=== PATIENT | male | born 1975 | race Asian ===

== ENCOUNTER 2016-08-19 00:24 | Emergency (ER) | payer SELFPAY ==
[~2016-08-19] VITALS: Ht 165.1 cm; Wt 66.1 kg
[2016-08-19 00:33] VITALS: Ht 165.1 cm; Wt 66.1 kg
[2016-08-19] MEDS ORDERED: AMOX500C3 PO (00:56)
[2016-08-19] MEDS ORDERED: AMOXICILLIN 250 MG CAP PO STA (00:56)
[2016-08-19] MEDS ORDERED: CIPRO 0.2%/HYDROCORTISONE 1% OTIC SUSP 10 ML BTL OT STA (00:56)
[2016-08-19 01:29] VITALS: BP 118/74; PULSE 71; TEMP 36.8; O2SAT 94
--- NOTE | 2016-08-19 04:10 | EMERGENCY ROOM VISIT NOTE ---
History First contact with patient: 00:37 Chief Complaint: EAR PAIN Stated Complaint: EAR PAIN History of Present Illness The patient is a 40 year old male who presents to the Emergency Room with complaints of left ear pain and fullness for the past few days. Patient denies cough, chest pain, dyspnea, headache, neck status, sore throat, facial pain. He is tolerating by mouth fluids and food. He has had water in his ear recently. Review of Systems See HPI for pertinent positives & negatives. A total of 10 systems reviewed and were otherwise negative. Past Medical/Surgical History Medical Problems: (1) Asthma Family History Diabetes mellitus Hypertension Social History Smoking Status: Never Smoker Drug Use: none Marital Status: single Housing Status: lives with friends Occupation Status: employed Current/Historical Medications Scheduled Amoxicillin (Amoxil), 500 MG PO TID Allergies Coded Allergies: No Known Allergies (Unverified , 08/19/16) Physical Exam Vital Signs Date Time Temp Pulse Resp B/P (MAP) Pulse Ox O2 Delivery O2 Flow Rate FiO2 08/19/16 01:29 36.8 71 18 118/74 94 08/19/16 01:28 71 18 118/74 94 Room Air 08/19/16 00:33 36.8 75 18 115/81 94 Room Air Pain Rating (0-10): 3.0 Physical Exam VITALS: Vitals are noted on the nurse's note and reviewed by myself. Vital signs stable. GENERAL: Pleasant male, in no acute distress, nondiaphoretic, well-developed well-nourished. SKIN: The skin was without rashes, erythema, edema, or bruising. There is no tenting of the skin. Capillary reflex less than 2 seconds. HEAD: Normocephalic atraumatic. EARS: Left tympanic membrane bulging concerning for otitis media with the ear canal quite erythematous and edematous and tragus tenderness the right External auditory canals clear, tympanic membranes pearly gillis without erythema or effusion. No mastoid tenderness bilaterally EYES: Pupils equal round and reactive to light and accommodation. Conjunctivae without injection, sclerae without icterus. Extraocular movements intact. NOSE: Patent, turbinates without inflammation or discharge. No sinus tenderness. MOUTH: Mucous membranes moist. Pharynx without erythema or exudate. Uvula midline. Airway patent. Tongue does not deviate. NECK: Supple without nuchal rigidity. No lymphadenopathy. No thyromegaly. Cervical spine is nontender. No JVD. No meningeal signs HEART: Regular rate and rhythm without murmurs gallops or rubs. LUNGS: Clear to auscultation bilaterally without wheezes, rales or rhonchi. No dullness to percussion. No retractions or accessory muscle use. ABDOMEN: Positive bowel sounds x 4. Normal tympanic percussion. Soft, nontender, without masses or organomegaly. Grier sign negative. No guarding or rebound tenderness. MUSCULOSKELETAL: No muscle atrophy, erythema, or edema noted. NEURO: Patient was alert and oriented to person place and time. Normal sensation to light and sharp touch. No focal neurological deficits. Medical Decision & Procedures Medications Administered Medications (Trade) Dose Ordered Sig/Rafia Route Start Time Stop Time Status Last Admin Dose Admin Amoxicillin (Amoxil Cap) 500 mg NOW STAT PO 08/19/16 00:56 08/19/16 00:58 DC 08/19/16 01:20 500 MG Ciprofloxacin/ Hydrocortisone (Cipro Hc Otic Susp) 2 drops NOW STAT OT 08/19/16 00:56 08/19/16 00:58 DC 08/19/16 01:23 2 DROPS ED Course Prior records/ancillary studies reviewed. Triage Nursing notes reviewed. Additional history obtained from friend The patient's history was concerning for ear problems Differential diagnosis: Etiologies such as viral syndrome, otitis, pharyngitis, mastoiditis, eustachian tube dysfunction, as well as others were entertained. Physical examination: Otitis ER treatment provided: Amoxicillin, Cipro drops On reassessment the patient felt better. Diagnostics interpreted by me: Deferred This appears to be consistent with otitis. Patient was started on antibiotics. He also had tragus tenderness and the ear canal is quite edematous so Cipro drops were also added in. He is advised no swimming until symptoms have resolved and cleared by the family care doctor. He was advised follow-up in a few days or here in the ER sooner for headache, neck stiffness, severe pain, worsening signs or symptoms or as needed. Patient no signs of meningitis or mastoiditis on exam he was well-appearing.. By the evaluation outlined above emergent etiologies such as pharyngitis, pneumonia, meningitis, sepsis, bacteremia, as well as others were deemed relatively unlikely. The pt informed about the findings as listed above. All questions were answered and pleased with the treatment. Return instructions were outlined and the patient was discharged in stable condition. Outpatient prescription management: amoxil Referral: The patient was referred back to their primary care physician for follow-up in 2 to 3 days for a recheck of the current condition. Medical Decision as above Impression Primary Impression: Left otitis media Departure Information Dispostion Home / Self-Care Condition GOOD Prescriptions Amoxicillin (AMOXIL) 500 Mg Cap 500 MG PO TID for 10 Days, #30 CAP Prov: Darya Huynh PA-C 08/19/16 Forms WORK / SCHOOL INSTRUCTIONS, HOME CARE DOCUMENTATION FORM, IMPORTANT VISIT INFORMATION Patient Instructions [facility], ED Otitis Media Serous Adult Additional Instructions Cipro drops: 2 drops 4 times a day to the left ear for one week. No swimming for the next 2 weeks. It may take up to 2 weeks for your hearing to come back. Amoxicillin 500mg: Take one pill 3 times daily for 10 days for your infection. All antibiotics can cause diarrhea. If this occurs and you feel worse or it does not resolve in 1-2 days follow up with your doctor or return to the Emergency Department as this could be signs of serious underlying problems. Any medication can cause an allergic reaction, stop the pills immediately and return to the ER for rash, hives, breathing difficulties, or swelling. Acetaminophen(Tylenol) may be used for fever or pain. Use 1000mg every six hours as needed. Avoid using more than 4000mg in a 24 hour period. (AND/OR) Ibuprofen(Motrin, Advil) may be used for fever or pain. Use 600mg every six hours as needed. Take with food. Avoid using more than 2400mg in a 24 hour period. Do not use 2400mg per day for more than three consecutive days without physician direction. Prolonged inappropriate use can lead to stomach upset or ulcers. Afrin nasal spray: 2-3 sprays to each nostril twice daily as needed for congestion. Do not use for more than 3-4 days because it can lead to worsening rebound congestion. Pseudoephedrine(Sudaphed): 30-60mg every 6 hours as needed for nasal congestion. Do not take this with other stimulant products or supplements. Rest and drink plenty of fluids. Controlling your fever with Tylenol and Ibuprofen as above will make you feel better. Wash your hands after nose blowing, sneezing, or coughing. Most germs are spread through contact, therefore improper hygiene may result in your close contacts and loved ones becoming ill just like you. Continue current medications. Return to the ER for severe headache, neck stiffness, chest pain, difficulty breathing, fevers, vomiting, worsening of your condition, or as needed. Follow up with your primary physician this week for a recheck of your current condition. Problem Qualifiers Primary Impression: Left otitis media Otitis media type: suppurative Chronicity: acute Recurrence: not specified as recurrent Spontaneous tympanic membrane rupture: without spontaneous rupture Qualified Codes: H66.002 - Acute suppurative otitis media without spontaneous rupture of ear drum, left ear
== END 2016-08-19 01:30 | disposition home or self-care (01) ==
LOC: C.EDB 00:26 → C.EDA 01:30
DX: H66.002 Acute suppurative otitis media without spontaneous rupture of ear drum, left ear (principal); J45.909 Unspecified asthma, uncomplicated; Z83.3 Family history of diabetes mellitus; Z82.49 Family history of ischemic heart disease and other diseases of the circulatory system